=== PATIENT | male | born 1970 | race Caucasian/White ===

== ENCOUNTER → 2020-04-05 | Outpatient (CLI) | payer BC, OTHER ==
[~2020-04-05] MED LIST: ALLEGRA ALLERG180 MG PO; LAMICTAL XR200 MG PO
== END ==
LOC: LAB 08:45
PROVIDERS: ATTEND Neuromusculoskeletal Medicine & OMM
DX: Z20.828 Contact with and (suspected) exposure to other viral communicable diseases (principal)